=== PATIENT | female | born 1970 | race Hispanic/Latino ===

== ENCOUNTER 2019-01-03 05:57 | Day surgery (SDC) | payer MEDICAID ==
[~2019-01-03] VITALS: Ht 157.5 cm; Wt 79.4 kg
[~2019-01-03 05:57] MED LIST: AMLO5TAB9 PO; SODIUM CHLORIDE 0.9% 1000ML 1,000 ML IV ONE
[2019-01-03 06:58] VITALS: BP 150/78
[2019-01-03 07:48] VITALS: BP 116/68
[2019-01-03 07:53] VITALS: BP 114/70
[2019-01-03 07:58] VITALS: BP 140/67
[2019-01-03 08:03] VITALS: BP 138/65
[2019-01-03 08:08] VITALS: BP 142/60
--- NOTE | 2019-01-03 08:10 | NUR ---
dc pt dc home via [place],no distress noted. denies any pain or discomforts. accompanied by spouse, pt states feels" slight drowsy". pt spouse instructed on fall precautions. to stay with patient / until anesthesia subsides. pt spouse verbalized understanding.
== END 2019-01-03 08:10 | disposition home or self-care (01) ==
LOC: DAH 05:57 → ENDO 05:57
PROVIDERS: ATTEND Internal Medicine
DX: K63.5 Polyp of colon (principal); K57.30 Diverticulosis of large intestine without perforation or abscess without bleeding; K64.1 Second degree hemorrhoids; I10 Essential (primary) hypertension; Z79.899 Other long term (current) drug therapy; Z90.710 Acquired absence of both cervix and uterus; Z80.0 Family history of malignant neoplasm of digestive organs; K62.89 Other specified diseases of anus and rectum
CPT/HCPCS: 45380; 88305; A4606; J7030